=== PATIENT | male | born 1980 | race Two or more races ===

== ENCOUNTER 2021-08-13 21:06 | Inpatient (IN) | payer OTHER ==
[~2021-08-13] VITALS: Ht 175.3 cm; Wt 86.7 kg
[2021-08-13 22:43] LABS: BASOPHIL 0.2 % (0-2); EOSINOPHIL 0 % (0-5); HGB 15.5 g/dl (13.2-18.0); LYMPHOCYTE 31.9 % (15-48); MCH 32.4 pg (25.0-31.0); MCHC 34.4 g/dL (32.0-36.0); MCV 94.1 fL (78.0-100.0); MONOCYTE 8.7 % (0-12); MPV 11.1 fL (6.0-9.5); NEUTROPHIL 58.7 % (41-80); NRBC 0; PLT 138 K/uL (150-400); RBC 4.78 M/uL (4.70-6.00); RDW 11.8 % (11.5-14.0); WBC 4.4 K/uL (4.0-10.5)
[2021-08-13 23:04] LABS: BUN/CREAT RATIO (CALC) 7.8 RATIO; CREATININE 0.77 mg/dL (0.67-1.17)
[2021-08-14 00:56] LABS: INFLUENZA A NAA NEGATIVE (NEGATIVE)
[2021-08-14 00:57] LABS: CORONAVIRUS 2019 SARS-COV-2 POSITIVE (NEGATIVE)
[2021-08-14 00:58] LABS: BILIRUBIN 1+ mg/dL (NEGATIVE); BLOOD NEGATIVE Ery/uL (NEGATIVE); CLARITY CLEAR (CLEAR); COLOR YELLOW (YELLOW); GLUCOSE (U) NORMAL (NORMAL); LEUKOCYTES NEGATIVE Leu/uL (NEGATIVE); NITRITE NEGATIVE (NEGATIVE); PROTEIN 1+ mg/dL (NEGATIVE); SPECIFIC GRAVITY 1.025 (1.001-1.030); UROBILINOGEN 0.2 mg/dL (0.2-1.0)
[2021-08-14 01:19] LABS: BACTERIA TRACE; MUCOUS TRACE; TRANSITIONAL EPITHELIAL CELLS RARE; URINARY WBC RARE
[2021-08-14 06:13] LABS: LACTIC ACID 1.2 mmol/L (0.4-1.9)
[2021-08-15 05:37] LABS: BASOPHIL 0 % (0-2); EOSINOPHIL 0 % (0-5); HCT 40.6 % (42.0-52.0); HGB 13.8 g/dl (13.2-18.0); LYMPHOCYTE 12.6 % (15-48); MCH 32.3 pg (25.0-31.0); MCV 95.1 fL (78.0-100.0); MONOCYTE 8.6 % (0-12); NEUTROPHIL 78.4 % (41-80); NRBC 0; PLT 150 K/uL (150-400); RBC 4.27 M/uL (4.70-6.00); RDW 11.9 % (11.5-14.0); WBC 5.5 K/uL (4.0-10.5)
[2021-08-15 06:11] LABS: ALBUMIN 2.6 g/dL (3.4-5.0); BILIRUBIN - TOTAL 0.3 mg/dL (0.2-1.0); BUN/CREAT RATIO (CALC) 11.8 RATIO; CREATININE 0.76 mg/dL (0.67-1.17); GLOBULIN (CALCULATION) 4.5 g/dL; POTASSIUM 4.3 mmol/L (3.5-5.1); TOTAL PROTEIN 7.1 g/dL (6.4-8.2)
[2021-08-17 05:01] LABS: BASOPHIL 0.3 % (0-2); EOSINOPHIL 0 % (0-5); HCT 41.3 % (42.0-52.0); MCH 32.2 pg (25.0-31.0); MCHC 33.9 g/dL (32.0-36.0); MCV 94.9 fL (78.0-100.0); MONOCYTE 21.6 % (0-12); MPV 10.8 fL (6.0-9.5); NRBC 0; PLT 202 K/uL (150-400); RBC 4.35 M/uL (4.70-6.00); RDW 11.8 % (11.5-14.0); WBC 3.7 K/uL (4.0-10.5)
[2021-08-17 05:09] LABS: NEUTROPHIL 50.8 % (41-80)
[2021-08-17 05:33] LABS: BUN/CREAT RATIO (CALC) 19.4 RATIO; CREATININE 0.62 mg/dL (0.67-1.17); POTASSIUM 4.1 mmol/L (3.5-5.1)
[2021-08-18] MEDS ORDERED: DEXAMETHASONE6 MG PO (11:29)
[2021-08-18] MEDS ORDERED: VENTOLIN HFA IN18 GM INH (11:29)
--- NOTE | 2021-08-18 11:35 | NUR ---
PER DR. SOLANO PT. WILL DC HOME THIS DATE. HE WILL NEED 4 LITERS OF O2. CONTACTED GISELLE AT [facility] SHE WILL DELIVER A PORTABLE O2 TANK WELL DELIVER THE CONCENTRATOR TO THE HOME.
== END 2021-08-18 13:10 | disposition home or self-care (01) | DRG 177 ==
LOC: FER 21:06 → FMS 08-14 06:22
PROVIDERS: Internal Medicine; Nurse Practitioner Family; ADMIT Internal Medicine
PROC: 8E0ZXY6 Isolation (ICD-10-PCS; principal; 2021-08-14)
PROC: XW033G6 Introduction of REGN-COV2 Monoclonal Antibody into Peripheral Vein, Percutaneous Approach, New Technology Group 6 (ICD-10-PCS; 2021-08-14)
PROC: XW033E5 Introduction of Remdesivir Anti-infective into Peripheral Vein, Percutaneous Approach, New Technology Group 5 (ICD-10-PCS; 2021-08-14)
PROC: XW0DXM6 Introduction of Baricitinib into Mouth and Pharynx, External Approach, New Technology Group 6 (ICD-10-PCS; 2021-08-15)
DX: U07.1 COVID-19 (principal); J12.82 Pneumonia due to coronavirus disease 2019; J96.01 Acute respiratory failure with hypoxia; Z82.3 Family history of stroke
CPT/HCPCS: 36415; 36600; 71045; 80048; 80053; 81001; 82728; 82803; 83605; 84145; 85025; 87040; 94010; 94640; 94664; 94667; 94668; 94760; 94761; 94762; C9399; J0456; J0696; J1100; J1650; J1885; J7030; J7050; M0243; Q0244; U0002